=== PATIENT | male | born 1955 | race Caucasian/White ===

== ENCOUNTER 2017-01-16 18:50 | Emergency (ER) | payer MEDICARE ==
[2017-01-16] MEDS ORDERED: Hydromorphone 1 mg/ml Ampule IV ONE ×2 (19:45→22:05)
[2017-01-16] MEDS ORDERED: Sodium Chloride 0.9% 1000 ML 1,000 ML IV SCH (19:45)
[2017-01-16] MEDS ORDERED: Phenergan 25 MG INJ IV ONE (19:45)
[2017-01-16] MEDS ORDERED: ROCEPHIN 1 Gm-D5w 50 ml Bag** 1 G/50 ML IVPB IV STA (19:47)
--- NOTE | 2017-01-16 19:50 | ERPHSYRPT ---
- History of Present Illness Time Seen by Provider: 01/16/17 19:37 Source: patient, family (SISTER) Exam Limitations: no limitations Patient Subjective Stated Complaint: PT REPORTS PT HAS HAD LEFT SIDED BONE PAIN BEGINNING A FEW DAYS AGO-STATES PAIN ONLY GETS WORSE-PT HAS HX OF STROKE ET HAS DIFFICULTY SPEAKING- STATES THIS IS NOT WORSE Triage Nursing Assessment: PT PALE WARM ET [id number] TO ANSWER ONE WORD ANSWERS-RESP EASY ET NONLABORED-PUPILS RESPONSIVE Physician History: FOR THE PAST 3 DAYS PT HAS HAD LEFT SIDED FACIAL PAIN/HEADACHE AND DECREASED APPETITE; FOR THE PAST WEEK SHARP LEFT EARACHE; FOR THE PAST MONTH INCREASED URINARY FREQUENCY. PT HAD A CVA IN FEBRUARY 2013. PT DENIES CHEST PAIN, SHORTNESS OF AIR, ABDOMINAL PAIN. Allergies/Adverse Reactions: No Known Drug Allergies Allergy (Verified 01/16/17 19:08) Home Medications: Atorvastatin Calcium 20 mg PO DAILY 07/05/13 [History] Multivit-Min/FA/Lycopen/Lutein [Men 50 Plus Multivitamin Tab] 1 tab PO DAILY 05/15 [History] Aspirin [Aspirin EC] 81 mg PO .MONWEDFRI 05/31/16 [History] Metoprolol Tartrate 25 mg [Lopressor 25MG Tab] 25 mg PO DAILY 05/31/16 [ History] Rivaroxaban [Xarelto] 20 mg PO DAILY 05/31/16 [History] Hx Tetanus, Diphtheria Vaccination/Date Given: Yes Hx Influenza Vaccination/Date Given: No Hx Pneumococcal Vaccination/Date Given: No Immunizations Up to Date: Yes - Review of Systems Ears, Nose, & Throat: Ear Pain, Other (LEFT FACIAL PAIN) Respiratory: No Dyspnea Cardiac: No Chest Pain Abdominal/Gastrointestinal: Appetite Changes (DECREASED), No Abdominal Pain Genitourinary Symptoms: Frequency Neurological: Headache All Other Systems: Reviewed and Negative - Past Medical History Pertinent Past Medical History: Yes Neurological History: Stroke ENT History: No Pertinent History Cardiac History: Arrhythmia, High Cholesterol Respiratory History: No Pertinent History Endocrine Medical History: No Pertinent History Musculoskeletal History: Degenerative Disk Disease GI Medical History: GERD, Other History: No Pertinent History Psycho-Social History: Depression Male Reproductive Disorders: No Pertinent History Other Medical History: LONG HISTORY OF BACK PAIN AND MUSCLE SPASMS SPECIFICALLY IN LOWER BACK , hx bloody stools. pt came into ER for bloody stools and showed vtach on monitor per sister reportings. - Past Surgical History Past Surgical History: Yes Neuro Surgical History: No Pertinent History Cardiac: No Pertinent History Respiratory: No Pertinent History Gastrointestinal: Appendectomy Genitourinary: No Pertinent History Musculoskeletal: Orthopedic Surgery Male Surgical History: No Pertinent History Other Surgical History: 3 BACK SURGERIES - Social History Smoking Status: Current every day smoker How long have you smoked: YRS Exposure to second hand smoke: No Drug Use: none Patient Lives Alone: No Significant Family History: hypertension, stroke - Nursing Vital Signs Nursing Vital Signs: Initial Vital Signs Temperature 97.5 F 01/16/17 19:04 Pulse Rate 88 01/16/17 19:04 Respiratory Rate 20 01/16/17 19:04 Blood Pressure 117/75 01/16/17 19:04 O2 Sat by Pulse Oximetry 96 01/16/17 19:04 Pain Scale Pain Intensity 8 - Physical Exam General Appearance: alert Eye Exam: PERRL/EOMI Ears, Nose, Throat Exam: TMs normal, pharynx normal, dry mucous membranes Neck Exam: normal inspection Respiratory Exam: lungs clear Cardiovascular Exam: normal heart sounds Gastrointestinal/Abdomen Exam: soft, normal bowel sounds Back Exam: normal range of motion Extremity Exam: other (PARALYSIS OF RIGHT UPPER EXTREMITY; WEAKNESS OF RIGHT LOWER EXTREMITY.) Neurologic Exam: alert, cooperative Skin Exam: warm, dry SpO2 Interpretation: normal SpO2: 96 Oxygen Delivery: Room Air - Course Nursing assessment & vital signs reviewed: Yes - CT Exams Head CT Interpretation: Tele-radiologist Report (OLD LEFT MCA DISTRIBUTION INFARCT. NO ACUTE FINDINGS.) Maxillofacial Bones CT Interpretation: Tele-radiologist Report (MINIMAL SINUS DISEASE.) Ordered Tests: Active Orders 24 hr Category Date Time Status Clean Catch Urine Specimen STAT Care 01/16/17 19:45 Active IV Insertion STAT Care 01/16/17 19:45 Active FACIAL BONES WO CONTRAST [CT] Stat Exams 01/16/17 19:48 Taken HEAD WITHOUT CONTRAST [CT] Stat Exams 01/16/17 19:48 Taken AMYLASE Stat Lab 01/16/17 20:00 Completed CBC W DIFF Stat Lab 01/16/17 20:00 Completed CMP Stat Lab 01/16/17 20:00 Completed LIPASE Stat Lab 01/16/17 20:00 Completed MAG [MAGNESIUM] Stat Lab 01/16/17 20:00 Completed UA W/RFX UR CULTURE Stat Lab 01/16/17 20:40 Completed Medication Summary Generic Name Dose Route Start Last Admin Trade Name Paulie PRN Reason Stop Dose Admin Hydromorphone HCl 1 mg 01/16/17 22:05 Hydromorphone 1 Mg/Ml Ampule IV 01/16/17 22:06 STAT ONE Sodium Chloride 1,000 mls @ 335 mls/hr 01/16/17 19:45 01/16/17 20:30 Sodium Chloride 0.9% 1000 Ml IV 02/15/17 19:44 335 mls/hr .Q3H TONY Administration Discontinued Medications Generic Name Dose Route Start Last Admin Trade Name Paulie PRN Reason Stop Dose Admin Hydromorphone HCl 1 mg 01/16/17 19:45 01/16/17 20:29 Hydromorphone 1 Mg/Ml Ampule IV 01/16/17 19:46 1 mg STAT ONE Administration Hydromorphone HCl Confirm 01/16/17 20:11 Hydromorphone 1 Mg/Ml Ampule Administered 01/16/17 20:12 Dose 1 mg .ROUTE .STK-MED ONE Ceftriaxone Sodium/Dextrose 1 g in 50 mls @ 100 mls/hr 01/16/17 19:47 20:30 Rocephin 1 Gm-D5w 50 Ml Bag IV 01/16/17 20:16 100 mls/hr STAT STA Administration Ceftriaxone Sodium/Dextrose Confirm 01/16/17 20:11 Rocephin 1 Gm-D5w 50 Ml Bag Administered 01/16/17 20:12 Dose 1 g in 50 mls @ ud IV .STK-MED ONE Promethazine HCl 12.5 mg 01/16/17 19:45 01/16/17 20:30 Phenergan 25 Mg Inj IV 01/16/17 19:46 12.5 mg STAT ONE Administration Promethazine HCl Confirm 01/16/17 20:11 Phenergan 25 Mg Inj Administered 01/16/17 20:12 Dose 25 mg .ROUTE .STK-MED ONE Lab/Rad Data: Laboratory Result Diagrams 01/16/17 20:00 01/16/17 20:00 Laboratory Results 01/16/17 01/16/17 01/16/17 Range/Units 20:40 20:00 20:00 WBC (4.0-10.5) K/mm3 RBC (4.1-5.6) M/mm3 Hgb (12.5-18.0) gm/dl Hct (42-50) % MCV (78-100) fl MCH (26-32) pg MCHC (32-36) g/dl RDW (11.5-14.0) % Plt Count (150-450) K/mm3 MPV (6-9.5) fl Gran % (36.0-66.0) % Lymphocytes % (24.0-44.0) % Monocytes % (0.0-12.0) % Eosinophils % (0.00-5.0) % Basophils % (0.0-0.4) % Basophils # (0-0.4) Sodium 142 (136-145) mEq/L Potassium 4.0 (3.5-5.1) mEq/L Chloride 106 (98-107) mEq/L Carbon Dioxide 27.7 (21-32) mEq/L Anion Gap 12.7 (5-15) MEQ/L BUN 6 L (9-20) mg/dL Creatinine 1.31 H (0.55-1.30) mg/dl Estimated GFR 60 ML/MIN Glucose 109 (70-110) MG/DL Calcium 9.3 (8.5-10.1) mg/dL Magnesium 2.2 (1.8-2.4) mg/dL Total Bilirubin 0.40 (0.2-1.0) mg/dL AST 16 (15-37) U/L ALT 21 (12-78) U/L Alkaline Phosphatase 115 (46-116) U/L Serum Total Protein 7.5 (6.4-8.2) gm/dL Albumin 3.4 (3.4-5.0) g/dL Amylase 64 (25-115) U/L Lipase 117 (73-393) U/L Ur Collection Type CLEAN CATCH Urine Color YELLOW (YELLOW) Urine Appearance CLEAR (CLEAR) Urine pH 8.0 (5-6) Ur Specific Hudson 1.005 (1.005-1.025) Urine Protein NEGATIVE (Negative) Urine Ketones NEGATIVE (NEGATIVE) Urine Blood NEGATIVE (0-5) Festus/ul Urine Nitrite NEGATIVE (NEGATIVE) Urine Bilirubin NEGATIVE (NEGATIVE) Urine Urobilinogen NORMAL (0-1) mg/dL Ur Leukocyte Esterase NEGATIVE (NEGATIVE) Urine Glucose NEGATIVE (NEGATIVE) mg/dL Specimen Received 01/16/17:203901/16/17 Range/Units 20:00 WBC 8.9 (4.0-10.5) K/mm3 RBC 4.54 (4.1-5.6) M/mm3 Hgb 14.9 (12.5-18.0) gm/dl Hct 44.7 (42-50) % MCV 98.5 (78-100) fl MCH 32.8 H (26-32) pg MCHC 33.3 (32-36) g/dl RDW 13.5 (11.5-14.0) % Plt Count 289 (150-450) K/mm3 MPV 9.6 H (6-9.5) fl Gran % 50.7 (36.0-66.0) % Lymphocytes % 39.9 (24.0-44.0) % Monocytes % 7.2 (0.0-12.0) % Eosinophils % 1.8 (0.00-5.0) % Basophils % 0.4 (0.0-0.4) % Basophils # 0.04 (0-0.4) Sodium (136-145) mEq/L Potassium (3.5-5.1) mEq/L Chloride (98-107) mEq/L Carbon Dioxide (21-32) mEq/L Anion Gap (5-15) MEQ/L BUN (9-20) mg/dL Creatinine (0.55-1.30) mg/dl Estimated GFR ML/MIN Glucose (70-110) MG/DL Calcium (8.5-10.1) mg/dL Magnesium (1.8-2.4) mg/dL Total Bilirubin (0.2-1.0) mg/dL AST (15-37) U/L ALT (12-78) U/L Alkaline Phosphatase (46-116) U/L Serum Total Protein (6.4-8.2) gm/dL Albumin (3.4-5.0) g/dL Amylase (25-115) U/L Lipase (73-393) U/L Ur Collection Type Urine Color (YELLOW) Urine Appearance (CLEAR) Urine pH (5-6) Ur Specific Hudson (1.005-1.025) Urine Protein (Negative) Urine Ketones (NEGATIVE) Urine Blood (0-5) Festus/ul Urine Nitrite (NEGATIVE) Urine Bilirubin (NEGATIVE) Urine Urobilinogen (0-1) mg/dL Ur Leukocyte Esterase (NEGATIVE) Urine Glucose (NEGATIVE) mg/dL Specimen Received - Departure Time of Disposition: 22:10 Departure Disposition: Home Clinical Impression: SINUSITIS, HEADACHE, LEFT FACIAL PAIN, HX CVA Condition: Stable Critical Care Time: No Referrals: ADALBERTO MIMS [Primary Care Provider] - Instructions: Headache, Sinusitis Additional Instructions: FOLLOW UP WITH PRIVATE DOCTOR TOMORROW. Prescriptions: Hydrocodone Bit/Acetaminophen [[place]wood 7.5-325 Tablet] 1 each PO Q4H PRN PRN #14 tablet PRN Reason: Pain Azithromycin 250 mg [Zithromax 250 MG TABLET] 250 mg PO ZPACK #6 tablet
[2017-01-16] MEDS ORDERED: Hydromorphone 1 mg/ml Ampule ONE ×2 (20:11→22:06)
[2017-01-16] MEDS ORDERED: ROCEPHIN 1 Gm-D5w 50 ml Bag** 1 G/50 ML IVPB IV ONE (20:11)
[2017-01-16] MEDS ORDERED: Phenergan 25 MG INJ ONE (20:11)
[2017-01-16] MEDS ORDERED: Sodium Chloride 0.9% 1000 ML 1,000 ML ONE (20:11)
[2017-01-16 20:14] LABS: BASOPHIL % 0.4 % (0.0-0.4); Eosinophil % 1.8 % (0.00-5.0); Granulocytes % 50.7 % (36.0-66.0); Lymphocytes % 39.9 % (24.0-44.0); Mean Cell Volume 98.5 fl (78-100); Mean Corpuscular Hemoglobin 32.8 pg (26-32); Mean Platelet Volume 9.6 fl (6-9.5); Monocytes % 7.2 % (0.0-12.0); Platelet Count 289 K/mm3 (150-450); Red Blood Count 4.54 M/mm3 (4.1-5.6); Red Cell Distribution Width 13.5 % (11.5-14.0); White Blood Count 8.9 K/mm3 (4.0-10.5)
[2017-01-16 20:35] LABS: ALBUMIN 3.4 g/dL (3.4-5.0); ANION GAP 12.7 MEQ/L (5-15); BILIRUBIN,TOTAL 0.4 mg/dL (0.2-1.0); Carbon Dioxide 27.7 mEq/L (21-32); Total Protein 7.5 gm/dL (6.4-8.2)
[2017-01-16 20:46] LABS: ADD URINE CULTURE? NO (NO); Bilirubin NEGATIVE (NEGATIVE); Blood NEGATIVE Ery/ul (0-5); COMPLETE URINE MICROSCOPIC? NO; Collection Type CLEAN CATCH; Glucose NEGATIVE (NEGATIVE); Leukocyte Esterase NEGATIVE (NEGATIVE)
[2017-01-16 22:05] VITALS: BP 124/86; PULSE 72
[2017-01-16 22:10] VITALS: O2SAT 96
--- NOTE | 2017-01-17 08:42 | XRAY ---
Indication: Left facial pain. Multiple contiguous axial images obtained through the head without contrast. Comparison: March 21, 2013. New finding for old left MCA infarct. No acute intracranial hemorrhage, hydrocephalus, or mass effect. Fourth ventricle is midline. Bony calvarium intact. Visualized paranasal sinuses and mastoid air cells are clear. Impression: Old left MCA infarct. No acute intracranial abnormalities. Comment: Preliminary interpretation was made by [facility]. No discrepancy. CTDI 68.15
--- NOTE | 2017-01-17 08:44 | XRAY ---
Indication: Left facial pain. Multiple contiguous axial images obtained through the facial bones. Sagittal and coronal reformatted images obtained. Comparison: None. Patient is edentulous. No acute fracture, suspicious bony lesions, or radiopaque foreign body. Orbits including roof, cruz, and floors intact. Minimal nasoseptal deviation to the right. Minimal mucosal thickening of the both ethmoid, left frontal, and floor of the right maxillary sinuses. Remaining paranasal sinuses clear. Visualized noncontrasted soft tissues unremarkable. CT head reported separately. Impression: Minimal paranasal sinus disease. Remaining CT facial bones negative. Comment: Preliminary interpretation was made by [facility]. No discrepancy. CTDI 59.47
== END 2017-01-16 22:29 | disposition home or self-care (01) ==
LOC: ED 18:50
DX: J32.9 Chronic sinusitis, unspecified (principal); R51 Headache; Z86.73 Personal history of transient ischemic attack (TIA), and cerebral infarction without residual deficits
CPT/HCPCS: 36000; 36415; 70450; 70486; 80053; 81002; 82150; 83690; 83735; 85025; 96360; 96361; 96374; 96375; 96376; 99284; J0696; J1170; J2550

== ENCOUNTER 2020-08-18 09:57 | Day surgery (SDC) | payer MEDICARE ==
[2020-08-18] MEDS ORDERED: BUPIVACAINE 0.5% VIAL IJ ONE (09:58)
[2020-08-18] MEDS ORDERED: Depo-Medrol 40 MG/ML IM ONE (09:58)
[2020-08-18] MEDS ORDERED: DIPRIVAN 200 MG/20 ML IV ONE (11:05)
--- NOTE | 2020-08-18 11:59 | XRAY ---
13 seconds fluoroscopy time in surgery for intra-articular injection of the left shoulder.
--- NOTE | 2020-08-18 12:05 | XRAY ---
Indication: Right shoulder injection. Intraoperative fluoroscopy provided for 8 seconds. Single digital spot images submitted for interpretation demonstrates needle tip projecting over the right glenohumeral joint superiorly. Small amount of contrast injected for needle tip placement. Correlate with intraoperative findings/report.
--- NOTE | 2020-08-18 12:09 | XRAY ---
Indication: Left shoulder injection. Intraoperative fluoroscopy provided for 13 seconds. Single digital spot image submitted for interpretation demonstrates needle tip projecting over the left glenohumeral joint superiorly. Small amount of contrast injected for needle tip placement. Correlate with intraoperative findings/report.
--- NOTE | 2020-08-18 12:37 | XRAY ---
8 seconds fluoroscopy time in surgery for intra-articular injection of the right shoulder.
[2020-08-18] MEDS ORDERED: Lactated Ringers 1,000 ML IV ONE (16:31)
== END 2020-08-18 11:40 | disposition home or self-care (01) ==
LOC: SDC-PAIN 09:57
PROVIDERS: ATTEND Psychiatry & Neurology Pain Medicine
DX: M19.012 Primary osteoarthritis, left shoulder (principal); M19.011 Primary osteoarthritis, right shoulder; G62.9 Polyneuropathy, unspecified; Z86.73 Personal history of transient ischemic attack (TIA), and cerebral infarction without residual deficits; I48.91 Unspecified atrial fibrillation; F41.8 Other specified anxiety disorders; Z79.01 Long term (current) use of anticoagulants; Z79.899 Other long term (current) drug therapy
CPT/HCPCS: 20610; 73030; 77002; J1030; J2704; Q9966

== ENCOUNTER 2021-04-14 11:17 | Emergency (ER) | payer MEDICARE ==
--- NOTE | 2021-04-14 11:23 | ERPHSYRPT ---
- History of Present Illness Time Seen by Provider: 04/14/21 11:22 Source: patient Exam Limitations: no limitations, clinical condition Physician History: This is a 65-year-old white male who uses a wheelchair to move around after a CVA several years ago. He is a patient of Dr. Renner. He is on Xarelto he has a history of hypertension and elevated cholesterol. He has chronic right-sided residual weakness. Patient states that he has significant right shoulder and upper arm pain since yesterday. He did not fall or suffer any trauma to the area. He has never had anything like this in the past. He denies overexertion. Patient is not interested in an x-ray at this time. He has no anterior chest pain. He does see Dr. Carrero, his pain specialist. Occurred: yesterday Quality: constant, aching Severity of Pain-Max: moderate Severity of Pain-Current: moderate Extremities Pain Location: shoulder: right, arm: right (Upper portion) Modifying Factors: Improves With: immobilization (Improved) Associated Symptoms: none Allergies/Adverse Reactions: No Known Drug Allergies Allergy (Verified 04/14/21 11:44) Home Medications: Atorvastatin Calcium 20 mg PO DAILY 07/05/13 [History] Multivit-Min/FA/Lycopen/Lutein [Men 50 Plus Multivitamin Tab] 1 tab PO DAILY 03/30/16 [History] Aspirin [Aspirin EC] 81 mg PO .MONWEDFRI 05/31/16 [History] Metoprolol Tartrate 25 mg [Lopressor 25MG Tab] 25 mg PO DAILY 05/31/16 [History] Rivaroxaban [Xarelto] 20 mg PO DAILY 05/31/16 [History] Hx Tetanus, Diphtheria Vaccination/Date Given: Yes Hx Influenza Vaccination/Date Given: No Hx Pneumococcal Vaccination/Date Given: No Travel Risk - International Travel Have you traveled outside of the country in past 3 weeks: No - Coronavirus Screening Are you exhibiting any of the following symptoms?: No Close contact with a COVID-19 positive Pt in past 14-21 Days: No - Review of Systems Constitutional: No Symptoms Eyes: No Symptoms Ears, Nose, & Throat: No Symptoms Respiratory: No Symptoms Cardiac: No Symptoms Abdominal/Gastrointestinal: No Symptoms Genitourinary Symptoms: No Symptoms Musculoskeletal: Joint Pain (Right shoulder) Skin: No Symptoms Neurological: No Symptoms Psychological: No Symptoms Endocrine: No Symptoms Hematologic/Lymphatic: No Symptoms Immunological/Allergic: No Symptoms All Other Systems: Reviewed and Negative - Past Medical History Pertinent Past Medical History: Yes Neurological History: Stroke ENT History: No Pertinent History Cardiac History: Arrhythmia, High Cholesterol Respiratory History: No Pertinent History Endocrine Medical History: No Pertinent History Musculoskeletal History: Degenerative Disk Disease GI Medical History: GERD, Other History: No Pertinent History Psycho-Social History: Depression Male Reproductive Disorders: No Pertinent History Other Medical History: LONG HISTORY OF BACK PAIN AND MUSCLE SPASMS SPECIFICALLY IN LOWER BACK , hx bloody stools. pt came into ER for bloody stools and showed vtach on monitor per sister reportings. - Past Surgical History Past Surgical History: Yes Neuro Surgical History: No Pertinent History Cardiac: No Pertinent History Respiratory: No Pertinent History Gastrointestinal: Appendectomy Genitourinary: No Pertinent History Musculoskeletal: Orthopedic Surgery Male Surgical History: No Pertinent History Other Surgical History: 3 BACK SURGERIES - Social History Smoking Status: Current every day smoker How long have you smoked: YRS Exposure to second hand smoke: No Drug Use: none Patient Lives Alone: No Significant Family History: hypertension, stroke - Nursing Vital Signs Nursing Vital Signs: Initial Vital Signs Temperature 97.6 F 04/14/21 11:38 Pulse Rate 77 04/14/21 11:38 Blood Pressure 125/76 04/14/21 11:38 O2 Sat by Pulse Oximetry 96 04/14/21 11:38 Pain Scale Pain Intensity 10 - Physical Exam General Appearance: no apparent distress, alert, anxiety Eyes, Ears, Nose, Throat Exam: normal ENT inspection, moist mucous membranes Neck Exam: normal inspection, non-tender, supple, full range of motion Cardiovascular/Respiratory Exam: chest non-tender, no respiratory distress Abdominal Exam: non-tender Back Exam: normal inspection, normal range of motion, No CVA tenderness, No vertebral tenderness Shoulder Exam: normal inspection, no evidence of injury, limited ROM (Chronically secondary to weakness post CVA several years ago) Elbow/Forearm Exam: normal inspection, non-tender, no evidence of injury Wrist Exam: normal inspection, non-tender, no evidence of injury Hand Exam: normal inspection, non-tender, no evidence of injury Neuro/Tendon Exam: normal sensation, normal motor functions, normal tendon functions Mental Status Exam: alert, oriented x 3, cooperative Skin Exam: normal color, warm, dry SpO2 Interpretation: normal O2 Delivery: Room Air Ordered Tests: Medication Summary Discontinued Medications Generic Name Dose Route Start Last Admin Trade Name Paulie PRN Reason Stop Dose Admin Methylprednisolone Sodium 0 mg 04/14/21 12:33 Succinate 125 mg/ Sterile IM 04/14/21 12:34 Water 2 ml STAT ONE Hydromorphone HCl 1 mg 04/14/21 12:31 Hydromorphone 1 Mg/1ml Inj 1 Mg/Ml Syringe IM 04/14/21 12:32 STAT ONE Ondansetron HCl 4 mg 04/14/21 12:33 Zofran 4 Mg/Udtablet Orally Disintegrating PO 04/14/21 12:34 STAT ONE Orphenadrine Citrate 60 mg 04/14/21 12:32 Orphenadrine Citrate 60 Mg/2 Ml Amp IM 04/14/21 12:33 STAT ONE - Progress Progress: improved, pain not gone completely Progress Note: 04/14/21 13:14 Medical decision making: This patient has right shoulder pain that began yesterday. He denies any trauma and does not want a x-ray of this shoulder at this time. He wants some pain relief. Patient is chronically on hydrocodone medication. We will add to his regimen and a muscle relaxant. We will also have him follow-up in the [facility] orthopedic clinic tomorrow 04/15/2021 in the morning. 04/14/21 13:15 Counseled pt/family regarding: diagnosis, need for follow-up - Departure Departure Disposition: Home Clinical Impression: Pain in right shoulder Condition: Stable Critical Care Time: No Referrals: ADALBERTO RENNER [Primary Care Provider] - [facility]-Ortho M-F [id number] Additional Instructions: Follow-up tomorrow in the [facility] orthopedic clinic for further management evaluation of your right shoulder pain. It is a walk-in clinic and you should arrive between 8 and 9 in the morning. Prescriptions: Cyclobenzaprine HCl 10 mg [Cyclobenzaprine 10 MG] 10 mg PO TID #10 tablet
[2021-04-14 11:44] VITALS: BP 125/76; PULSE 77; O2SAT 96
[2021-04-14] MEDS ORDERED: Hydromorphone 1 mg/ml Injection IM ONE (12:31)
[2021-04-14] MEDS ORDERED: Norflex 60 MG/2 ML IM ONE (12:32)
[2021-04-14] MEDS ORDERED: ZOFRAN ODT 4 MG PO ONE (12:33)
[2021-04-14] MEDS ORDERED: solu-MEDROL 125 MG, Sterile H2O 10 ml 2 ML IM ONE ×2 (12:33)
[2021-04-14] MEDS ORDERED: ZOFRAN ODT 4 MG ONE (13:08)
[2021-04-14] MEDS ORDERED: Norflex 60 MG/2 ML ONE (13:08)
[2021-04-14] MEDS ORDERED: Hydromorphone 1 mg/ml Injection ONE (13:08)
[2021-04-14] MEDS ORDERED: solu-MEDROL ONE (13:08)
== END 2021-04-14 13:34 | disposition home or self-care (01) ==
LOC: ED 11:17
DX: M25.511 Pain in right shoulder (principal); M79.621 Pain in right upper arm; I63.9 Cerebral infarction, unspecified; R53.1 Weakness; I10 Essential (primary) hypertension; Z99.3 Dependence on wheelchair; Z72.0 Tobacco use; E78.5 Hyperlipidemia, unspecified; Z79.01 Long term (current) use of anticoagulants; Z79.891 Long term (current) use of opiate analgesic
CPT/HCPCS: 96372; 99284; J1170; J2360; J2930; Q0162

== ENCOUNTER 2021-04-16 13:19 | Emergency (ER) | payer MEDICARE ==
[2021-04-16 13:48] VITALS: PULSE 72; O2SAT 96
--- NOTE | 2021-04-16 14:17 | ERPHSYRPT ---
- History of Present Illness Time Seen by Provider: 04/16/21 13:22 Source: patient Exam Limitations: no limitations Patient Subjective Stated Complaint: Sister of patient states that she brought patient into ED on for the same right shoulder pain. She took him to the ortho clinic here at the hospital but stated the ortho clinic couldn't see him until they verified with Dr. Carrero that this was okay. Sister states the pain in his right shoulder isn't any better so she brought him back to the ED. Patient c/o right shoulder pain and denies any fall or injury to area. Triage Nursing Assessment: Patient wheeled back to ED in W/C. Patient brought to ED by his sister. He is answering questions appropriately most of the time but does get confused at times. RUE flaccid and slightly swollen; patient indicates this is normal for him. Physician History: 65 years old male with history of right-sided CVA with weakness presented in the ER with chief complaint of worsening right shoulder/arm pain for the last few days. Patient was evaluated 2 days ago, was given Solu-Medrol/Dilaudid/Norflex, was offered imaging which she refused and patient was supposed to follow-up with Ortho clinic. Patient does see pain management and Ortho clinic wants to make sure patient is okay to be seen there. Patient reported to the ER today with same pain getting worse. Patient states he needs three shots which she got last time and wants to go as those chart did help for couple of days. Denies any fall or trauma. Denies any swelling in the right upper extremity. No fever or chills reported. Denies any chest pain palpitations or new shortness of breath but has chronic shortness of breath from COPD's. Patient is very adamant that he needs shots and does not even want to be examined. Timing/Duration: day(s), constant, worse Severity: severe Modifying Factors: Improves With: nothing Associated Symptoms: weakness Allergies/Adverse Reactions: No Known Drug Allergies Allergy (Verified 04/16/21 13:36) Home Medications: Atorvastatin Calcium 20 mg PO DAILY 07/05/13 [History] Multivit-Min/FA/Lycopen/Lutein [Men 50 Plus Multivitamin Tab] 1 tab PO DAILY 03/30/16 [History] Aspirin [Aspirin EC] 81 mg PO .MONWEDFRI 05/31/16 [History] Metoprolol Tartrate 25 mg [Lopressor 25MG Tab] 25 mg PO DAILY 05/31/16 [History] Rivaroxaban [Xarelto] 20 mg PO DAILY 05/31/16 [History] Hx Tetanus, Diphtheria Vaccination/Date Given: Yes Hx Influenza Vaccination/Date Given: No Hx Pneumococcal Vaccination/Date Given: No Immunizations Up to Date: Yes Travel Risk - International Travel Have you traveled outside of the country in past 3 weeks: No - Coronavirus Screening Are you exhibiting any of the following symptoms?: No Close contact with a COVID-19 positive Pt in past 14-21 Days: No - Vaccine Status Have you recieved a Covid-19 vaccination: Yes 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 - Vaccination Dates Dates if Unknown: unknown - Review of Systems Constitutional: No Symptoms Eyes: No Symptoms Respiratory: Cough, Dyspnea Cardiac: No Symptoms Abdominal/Gastrointestinal: No Symptoms Musculoskeletal: Arthralgias, Deformity Skin: No Symptoms Neurological: Paralysis, Sensory Changes Psychological: Anxiety Hematologic/Lymphatic: No Symptoms - Past Medical History Pertinent Past Medical History: Yes Neurological History: Stroke ENT History: No Pertinent History Cardiac History: Arrhythmia, High Cholesterol Respiratory History: No Pertinent History Endocrine Medical History: No Pertinent History Musculoskeletal History: Degenerative Disk Disease GI Medical History: GERD, Other History: No Pertinent History Psycho-Social History: Depression Male Reproductive Disorders: No Pertinent History Other Medical History: LONG HISTORY OF BACK PAIN AND MUSCLE SPASMS SPECIFICALLY IN LOWER BACK - Past Surgical History Past Surgical History: Yes Neuro Surgical History: No Pertinent History Cardiac: No Pertinent History Respiratory: No Pertinent History Gastrointestinal: Appendectomy Genitourinary: No Pertinent History Musculoskeletal: Orthopedic Surgery Male Surgical History: No Pertinent History Other Surgical History: 3 BACK SURGERIES - Social History Smoking Status: Current every day smoker How long have you smoked: YRS Exposure to second hand smoke: No Drug Use: none Patient Lives Alone: No Significant Family History: hypertension, stroke - Nursing Vital Signs Nursing Vital Signs: Initial Vital Signs Temperature 98.2 F 04/16/21 13:36 Pulse Rate 72 04/16/21 13:36 Respiratory Rate 18 04/16/21 13:36 O2 Sat by Pulse Oximetry 96 04/16/21 13:36 Pain Scale Pain Intensity 9 - Physical Exam General Appearance: no apparent distress, alert, anxiety Eye Exam: eyes nml inspection Ears, Nose, Throat Exam: pharyngeal erythema Neck Exam: normal inspection, full range of motion Respiratory Exam: rhonchi, wheezing Cardiovascular Exam: regular rate/rhythm, normal heart sounds Back Exam: normal inspection Extremity Exam: other (Nontender right upper extremity. Contracture in the hand. 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 I have counseled him that we can treat pain symptomatically but needs to be evaluated the reason as this pain could be cardiac, musculoskeletal, DVT but he does not want any thing to be done. He wants to leave, discussed with patient about seriousness of condition which could be underlying cause of it and delaying the diagnosis good further enhanced disability/morbidity but he does not want to have anything done. He is specifically asking for Dilaudid. He is on pain medications at home. He is not confused or altered at all. He left the ER on his wheelchair which she normally used for moving around. No respiratory distress. Counseled pt/family regarding: diagnosis, need for follow-up, smoking cessation - Departure Departure Disposition: AMA Clinical Impression: Pain in right shoulder Qualifiers: Chronicity: unspecified Qualified Code(s): M25.511 - Pain in right shoulder Condition: Stable Critical Care Time: No Referrals: ADALBERTO MIMS [Primary Care Provider] - Follow up/PCP as directed
== END 2021-04-16 14:12 | disposition left against medical advice (07) ==
LOC: ED 13:19
DX: M25.511 Pain in right shoulder (principal); I63.9 Cerebral infarction, unspecified; G81.91 Hemiplegia, unspecified affecting right dominant side; Z79.01 Long term (current) use of anticoagulants; E78.5 Hyperlipidemia, unspecified; Z72.0 Tobacco use
CPT/HCPCS: 99283

== ENCOUNTER 2021-04-21 10:13 | Emergency (ER) | payer MEDICARE ==
--- NOTE | 2021-04-21 11:22 | XRAY ---
Indication: Pain and weakness. Comparison: July 22, 2020. 3 view right shoulder obtained in wheelchair grossly unchanged again demonstrating osteopenia and mild glenohumeral/acromioclavicular degenerative arthropathy. No new/acute abnormalities.
[2021-04-21] MEDS ORDERED: Hydromorphone 1 mg/ml Injection IM ONE (11:32)
[2021-04-21] MEDS ORDERED: solu-MEDROL 125 MG, Sterile H2O 10 ml 2 ML IM ONE ×2 (11:32)
[2021-04-21] MEDS ORDERED: Zofran 4 MG/2 ML VIAL IV ONE (11:33)
[2021-04-21] MEDS ORDERED: Norflex 60 MG/2 ML IM ONE (11:33)
--- NOTE | 2021-04-21 11:40 | ERPHSYRPT ---
- History of Present Illness Time Seen by Provider: 04/21/21 10:15 Source: patient, family Exam Limitations: clinical condition (Post CVA with residual speech impediment) Patient Subjective Stated Complaint: Patient c/o chronic right arm/shoulder pain. Indicates pain is increasing. Right side is flaccid due to history of CVA which is normal for this patient. Triage Nursing Assessment: Patient wheeled back to ED. His sister is present with him. He is not a great historian but the sister is able to provide an accurate history without difficulties. Patient has to hold his RUE across his stomach using his left hand to keep it in a position of more comfort. RUE is swollen. Patient refusing to get out of W/C and into bed for exam. Physician History: This is a 65-year-old white male patient of Dr. 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 He also sees pain specialist Dr. Carrero. Patient has had chronic but worsening right shoulder pain without trauma. On 04/14/2021 patient was seen by me in the emergency department and the patient declined x-ray at that time. He was given injections of intramuscular medication to help relieve his pain and was referred to orthopedic clinic here at [facility]. He was to have an evaluation by them on 04/15/2021. However there was some type of issue halting that process because the patient sees a pain specialist. That has still not resolved. On 04/16/2021 patient was again seen in this emergency department and left AMA when he declined x-ray again and declined work-up. He returns today with no chest pain but worsening left shoulder pain. He has an appointment to see Dr. Carrero on 04/27/2021, his pain specialist. He does agree to an x-ray of his right shoulder today Occurred: other (Chronic) Method of Injury: unknown Quality: constant, aching, throbbing Severity of Pain-Max: moderate Severity of Pain-Current: moderate Extremities Pain Location: shoulder: right Modifying Factors: Improves With: movement (Worsens), other (Patient tries to use his sling but it hurts other areas on his body when he wears it. Therefore, he does not wear his sling) Associated Symptoms: none, No chest discomfort, No chest pain, No dyspnea, No short of breath Allergies/Adverse Reactions: No Known Drug Allergies Allergy (Verified 04/21/21 11:13) Home Medications: Atorvastatin Calcium 20 mg PO DAILY 07/05/13 [History] Multivit-Min/FA/Lycopen/Lutein [Men 50 Plus Multivitamin Tab] 1 tab PO DAILY 03/30/16 [History] Aspirin [Aspirin EC] 81 mg PO .MONWEDFRI 05/31/16 [History] Metoprolol Tartrate 25 mg [Lopressor 25MG Tab] 25 mg PO DAILY 05/31/16 [History] Rivaroxaban [Xarelto] 20 mg PO DAILY 05/31/16 [History] Duloxetine HCl 30 mg [Cymbalta 30 MG Capsule] 1 cap PO DAILY 04/21/21 [History] Hydrocodone/Acetaminophen [Hydrocodone-Acetamin 10-325 mg] 1 tab PO QID PRN 04/21/21 [History] Hx Tetanus, Diphtheria Vaccination/Date Given: Yes Hx Influenza Vaccination/Date Given: No Hx Pneumococcal Vaccination/Date Given: No Immunizations Up to Date: Yes Travel Risk - International Travel Have you traveled outside of the country in past 3 weeks: No - Coronavirus Screening Are you exhibiting any of the following symptoms?: No Close contact with a COVID-19 positive Pt in past 14-21 Days: No - Vaccine Status Have you recieved a Covid-19 vaccination: 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: [employer] - Vaccination Dates Date of 2cond Vaccination (if applicable): January 2021 - Review of Systems Constitutional: No Symptoms Eyes: No Symptoms Ears, Nose, & Throat: No Symptoms Respiratory: No Symptoms Cardiac: No Symptoms, No Chest Pain Abdominal/Gastrointestinal: No Symptoms Genitourinary Symptoms: No Symptoms Musculoskeletal: Joint Pain (Right shoulder), No Fall, No Injury Skin: No Symptoms Neurological: No Symptoms Psychological: No Symptoms Endocrine: No Symptoms Hematologic/Lymphatic: No Symptoms Immunological/Allergic: No Symptoms All Other Systems: Reviewed and Negative - Past Medical History Pertinent Past Medical History: Yes Neurological History: Stroke ENT History: No Pertinent History Cardiac History: Arrhythmia, High Cholesterol Respiratory History: COPD Endocrine Medical History: No Pertinent History Musculoskeletal History: Degenerative Disk Disease GI Medical History: GERD, Other History: No Pertinent History Psycho-Social History: Depression Male Reproductive Disorders: No Pertinent History Other Medical History: LONG HISTORY OF BACK PAIN AND MUSCLE SPASMS SPECIFICALLY IN LOWER BACK - Past Surgical History Past Surgical History: Yes Neuro Surgical History: No Pertinent History Cardiac: No Pertinent History Respiratory: No Pertinent History Gastrointestinal: Appendectomy Genitourinary: No Pertinent History Musculoskeletal: Orthopedic Surgery Male Surgical History: No Pertinent History Other Surgical History: 4 BACK SURGERIES - Social History Smoking Status: Current every day smoker How long have you smoked: 45 years Exposure to second hand smoke: No Drug Use: none Patient Lives Alone: No Significant Family History: hypertension, stroke - Nursing Vital Signs Nursing Vital Signs: Initial Vital Signs Temperature 98 F 04/21/21 10:13 Pulse Rate 84 04/21/21 10:13 Respiratory Rate 17 04/21/21 10:13 Blood Pressure 141/80 04/21/21 10:13 O2 Sat by Pulse Oximetry 98 04/21/21 10:13 Pain Scale Pain Intensity 8 - Physical Exam General Appearance: no apparent distress, alert, anxiety Eyes, Ears, Nose, Throat Exam: normal ENT inspection, moist mucous membranes Neck Exam: normal inspection, non-tender, supple, full range of motion Cardiovascular/Respiratory Exam: chest non-tender, normal breath sounds, regular rate/rhythm, heart sounds normal, no respiratory distress Abdominal Exam: non-tender Back Exam: normal inspection, normal range of motion, No CVA tenderness, No vertebral tenderness Shoulder Exam: normal inspection, no evidence of injury, limited ROM, No deformity Elbow/Forearm Exam: normal inspection, non-tender, no evidence of injury, normal ROM Wrist Exam: normal inspection, non-tender, no evidence of injury Hand Exam: normal inspection, non-tender, no evidence of injury Neuro/Tendon Exam: normal sensation, normal motor functions, normal tendon functions, motor deficit (Secondary to stroke in the past) Mental Status Exam: alert, oriented x 3, cooperative Skin Exam: normal color, warm, dry SpO2 Interpretation: normal SpO2: 98 O2 Delivery: Room Air - Course Nursing assessment & vital signs reviewed: Yes Ordered Tests: Active Orders 24 hr Category Date Time Status SHOULDER Stat Exams 04/21/21 10:36 Completed - Progress Progress: improved, pain not gone completely, re-examined Progress Note: 04/21/21 11:40 Patient has narcotic pain medication at home. He sees his pain specialist on 04/27/2021. We will attempt to arrange his orthopedic appointment as an outpatient. 04/21/21 11:41 X-ray of the right shoulder shows degenerative changes. There are no/acute abnormalities. - Departure Departure Disposition: Home Clinical Impression: Chronic right shoulder pain Condition: Stable Critical Care Time: No Referrals: ADALBERTO RENNER [Primary Care Provider] - Follow up/PCP as directed Additional Instructions: Continue your outpatient pain medication as prescribed. Keep your appointment with your pain specialist. Follow-up with orthopedic services as discussed and arranged for you.
[2021-04-21] MEDS ORDERED: Hydromorphone 1 mg/ml Injection ONE (11:44)
[2021-04-21] MEDS ORDERED: Zofran 4 MG/2 ML VIAL ONE (11:44)
[2021-04-21] MEDS ORDERED: solu-MEDROL ONE (11:44)
[2021-04-21] MEDS ORDERED: Norflex 60 MG/2 ML ONE (11:44)
[2021-04-21 12:04] VITALS: BP 141/78; PULSE 81; O2SAT 97
== END 2021-04-21 12:11 | disposition home or self-care (01) ==
LOC: ED 10:13
DX: M25.511 Pain in right shoulder (principal); G89.29 Other chronic pain; I10 Essential (primary) hypertension; E78.5 Hyperlipidemia, unspecified; Z79.01 Long term (current) use of anticoagulants; Z79.891 Long term (current) use of opiate analgesic; Z72.0 Tobacco use; I63.9 Cerebral infarction, unspecified; R47.9 Unspecified speech disturbances; G81.01 Flaccid hemiplegia affecting right dominant side
CPT/HCPCS: 73030; 96372; 96374; 96375; 99284; J1170; J2360; J2405; J2930

== ENCOUNTER 2021-04-23 13:09 | Emergency (ER) | payer MEDICARE ==
[2021-04-23] MEDS ORDERED: Hydromorphone 1 mg/ml Injection IM ONE (14:36)
[2021-04-23] MEDS ORDERED: Hydromorphone 1 mg/ml Injection ONE (14:41)
--- NOTE | 2021-04-23 14:56 | ERPHSYRPT ---
- History of Present Illness Time Seen by Provider: 04/23/21 13:20 Source: patient, family Exam Limitations: no limitations Patient Subjective Stated Complaint: PATIENT HAS PAIN IN RIGHT SHOULDER Triage Nursing Assessment: PATIENT BEEN HAVING SYMPTOMS ON GOING SINCE LAST SUNDAY. PATIENT ALERT AND ORIENTED, PATIENT NONVERBAL, HX OF STROKE. NO SOB, LUNGS BILATERAL WHEEZING THROUGHOUT. HEART SOUNDS WNL. BOWEL SOUNDS PRESENT Physician History: 65 years old with multiple medical problems hypertension, stroke with right- sided residual weakness and upper extremity and speech impairment, on Xarelto, multiple back/neck surgeries presented in the ER with chief complaint of right shoulder pain. This has been going on for quite some time and patient has been seen in the ER multiple times and recent x-rays negative. Pain is moderate to severe sharp with minimal movements and even at resting, radiates down to forearm. Denies any chest pain. No difficulty breathing. Patient received pain shot and wants some relief again today because it is getting unbearable and has appointment with pain management for early next week. Occurred: other Quality: sharpness Severity of Pain-Max: severe Severity of Pain-Current: severe Extremities Pain Location: shoulder: right Modifying Factors: Improves With: pain medication. Worsens With: movement Allergies/Adverse Reactions: No Known Drug Allergies Allergy (Verified 04/21/21 11:13) Home Medications: Atorvastatin Calcium 20 mg PO DAILY 07/05/13 [History] Multivit-Min/FA/Lycopen/Lutein [Men 50 Plus Multivitamin Tab] 1 tab PO DAILY 03/30/16 [History] Aspirin [Aspirin EC] 81 mg PO .MONWEDFRI 05/31/16 [History] Metoprolol Tartrate 25 mg [Lopressor 25MG Tab] 25 mg PO DAILY 05/31/16 [History] Rivaroxaban [Xarelto] 20 mg PO DAILY 05/31/16 [History] Duloxetine HCl 30 mg [Cymbalta 30 MG Capsule] 1 cap PO DAILY 04/21/21 [History] Hydrocodone/Acetaminophen [Hydrocodone-Acetamin 10-325 mg] 1 tab PO QID PRN 04/21/21 [History] Hx Tetanus, Diphtheria Vaccination/Date Given: Yes Hx Influenza Vaccination/Date Given: No Hx Pneumococcal Vaccination/Date Given: No Travel Risk - International Travel Have you traveled outside of the country in past 3 weeks: No - Coronavirus Screening Are you exhibiting any of the following symptoms?: No Close contact with a COVID-19 positive Pt in past 14-21 Days: No - Vaccine Status Have you recieved a Covid-19 vaccination: Yes 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 - Vaccination Dates Date of 2cond Vaccination (if applicable): January 2021 - Review of Systems Constitutional: No Symptoms Eyes: No Symptoms Ears, Nose, & Throat: No Symptoms Respiratory: No Symptoms Cardiac: No Symptoms Genitourinary Symptoms: No Symptoms Musculoskeletal: Arthralgias, Back Pain, Neck Pain, Deformity Skin: No Symptoms Neurological: Speech Changes Endocrine: No Symptoms Hematologic/Lymphatic: No Symptoms - Past Medical History Pertinent Past Medical History: Yes Neurological History: Stroke ENT History: No Pertinent History Cardiac History: Arrhythmia, High Cholesterol Respiratory History: COPD Endocrine Medical History: No Pertinent History Musculoskeletal History: Degenerative Disk Disease GI Medical History: GERD, Other History: No Pertinent History Psycho-Social History: Depression Male Reproductive Disorders: No Pertinent History Other Medical History: LONG HISTORY OF BACK PAIN AND MUSCLE SPASMS SPECIFICALLY IN LOWER BACK - Past Surgical History Past Surgical History: Yes Neuro Surgical History: No Pertinent History Cardiac: No Pertinent History Respiratory: No Pertinent History Gastrointestinal: Appendectomy Genitourinary: No Pertinent History Musculoskeletal: Orthopedic Surgery Male Surgical History: No Pertinent History Other Surgical History: 4 BACK SURGERIES - Social History Smoking Status: Current every day smoker How long have you smoked: 45 years Exposure to second hand smoke: No Drug Use: none Patient Lives Alone: No Significant Family History: hypertension, stroke - Nursing Vital Signs Nursing Vital Signs: Initial Vital Signs Temperature 97.9 F 04/23/21 14:09 Pulse Rate 74 04/23/21 14:09 Respiratory Rate 20 04/23/21 14:09 Blood Pressure 128/83 04/23/21 14:09 O2 Sat by Pulse Oximetry 95 04/23/21 14:09 Pain Scale Pain Intensity 8 - Physical Exam General Appearance: no apparent distress, alert Eyes, Ears, Nose, Throat Exam: normal ENT inspection Neck Exam: normal inspection, supple, full range of motion Cardiovascular/Respiratory Exam: normal breath sounds, regular rate/rhythm Back Exam: normal inspection, No CVA tenderness Shoulder Exam: limited ROM (Right shoulder without Hill-Sachs deformity, reproducible pain with palpation and movements. ) Mental Status Exam: alert, oriented x 3, cooperative Skin Exam: normal color SpO2 Interpretation: normal SpO2: 95 O2 Delivery: Room Air Ordered Tests: Medication Summary Discontinued Medications Generic Name Dose Route Start Last Admin Trade Name Paulie PRN Reason Stop Dose Admin Hydromorphone HCl 1 mg 04/23/21 14:36 04/23/21 14:42 Hydromorphone 1 Mg/1ml Inj 1 Mg/Ml Syringe IM 04/23/21 14:37 1 mg STAT ONE Administration Hydromorphone HCl Confirm 04/23/21 14:41 Hydromorphone 1 Mg/1ml Inj 1 Mg/Ml Syringe Administered 04/23/21 14:42 Dose 1 mg .ROUTE .STK-MED ONE - Progress Progress: improved Progress Note: 04/23/21 14:54 He is given IM shot of Dilaudid and feeling better on reevaluation. No chest pain. Pain is similar to previous episodes, do not think needs any other work- up but recommended/encouraged keeping appointment with pain management. Discussed signs symptoms of worsening needing return to ER which he seems understanding. Stable for discharge. Counseled pt/family regarding: diagnosis, need for follow-up - Departure Departure Disposition: Home Clinical Impression: Chronic right shoulder pain Condition: Stable Critical Care Time: No Referrals: ADALBERTO MIMS [Primary Care Provider] - Follow Up with PCP/3 days SAVITA LAND MD [CONSULTING PHYSICIAN] - Follow up/PCP as directed (In 2 days for reevaluation) Additional Instructions: Take pain medications which you have at home as recommended. Keep appointment with pain management. Follow-up with primary care. Return to ER for worsening pain or if having chest pain, difficulty breathing etc.
[2021-04-23 15:09] VITALS: BP 124/80; PULSE 80
[2021-04-23 15:18] VITALS: O2SAT 95
== END 2021-04-23 15:13 | disposition home or self-care (01) ==
LOC: ED 13:09
DX: M25.511 Pain in right shoulder (principal); G89.29 Other chronic pain; I10 Essential (primary) hypertension; I63.9 Cerebral infarction, unspecified; G81.91 Hemiplegia, unspecified affecting right dominant side; R47.9 Unspecified speech disturbances; Z72.0 Tobacco use; Z79.01 Long term (current) use of anticoagulants; Z79.891 Long term (current) use of opiate analgesic; E78.5 Hyperlipidemia, unspecified
CPT/HCPCS: 96372; 99283; J1170

== ENCOUNTER 2021-04-26 17:17 | Emergency (ER) | payer MEDICARE ==
[2021-04-26] MEDS ORDERED: Hydromorphone 1 mg/ml Injection IM ONE (17:29)
[2021-04-26 17:30] VITALS: BP 133/87; PULSE 100; O2SAT 94
[2021-04-26] MEDS ORDERED: Hydromorphone 1 mg/ml Injection ONE (17:32)
--- NOTE | 2021-04-26 17:34 | ERPHSYRPT ---
- History of Present Illness Time Seen by Provider: 04/26/21 17:30 Source: patient, family, old records Exam Limitations: clinical condition Patient Subjective Stated Complaint: Right shoulder pain Triage Nursing Assessment: Patient brought back to ED via w/c and requested to stay in personal w/c. Patient A+O X3. Patient's skin pink, warm and dry. Patient complains of right shoulder pain 02/06. Patient has been dealing with this issue for several weeks and has been seen in ED multiple times for IM pain medication. Patient has appointment with Dr. Carrero tomorrow. 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 He is on Xarelto he has had numerous back and neck surgeries he presents with a complaint of right shoulder pain is been going on for several weeks he has an appointment tomorrow with pain clinic. He has had x-rays and other work-ups. Occurred: other (Pain is been present in the right shoulder for several weeks) Method of Injury: unknown Quality: intermittent, throbbing Severity of Pain-Max: severe Severity of Pain-Current: severe Extremities Pain Location: shoulder: right (Paralysis and decreased range of motion) Modifying Factors: Improves With: nothing Associated Symptoms: none Allergies/Adverse Reactions: No Known Drug Allergies Allergy (Verified 04/26/21 17:23) Home Medications: Atorvastatin Calcium 20 mg PO DAILY 07/05/13 [History] Multivit-Min/FA/Lycopen/Lutein [Men 50 Plus Multivitamin Tab] 1 tab PO DAILY 03/30/16 [History] Aspirin [Aspirin EC] 81 mg PO .MONWEDFRI 05/31/16 [History] Metoprolol Tartrate 25 mg [Lopressor 25MG Tab] 25 mg PO DAILY 05/31/16 [History] Rivaroxaban [Xarelto] 20 mg PO DAILY 05/31/16 [History] Duloxetine HCl 30 mg [Cymbalta 30 MG Capsule] 1 cap PO DAILY 04/21/21 [History] Hydrocodone/Acetaminophen [Hydrocodone-Acetamin 10-325 mg] 1 tab PO QID PRN 04/21/21 [History] Hx Tetanus, Diphtheria Vaccination/Date Given: Yes Hx Influenza Vaccination/Date Given: No Hx Pneumococcal Vaccination/Date Given: No Immunizations Up to Date: Yes Travel Risk - International Travel Have you traveled outside of the country in past 3 weeks: No - Coronavirus Screening Are you exhibiting any of the following symptoms?: No Close contact with a COVID-19 positive Pt in past 14-21 Days: No - Vaccine Status Have you recieved a Covid-19 vaccination: Yes 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[employer] - Vaccination Dates Date of 2cond Vaccination (if applicable): January 2021 - Review of Systems Constitutional: No Fever, No Chills Eyes: No Symptoms Ears, Nose, & Throat: No Symptoms Respiratory: No Cough, No Dyspnea Cardiac: No Chest Pain, No Edema, No Syncope Abdominal/Gastrointestinal: No Abdominal Pain, No Nausea, No Vomiting, No Diarrhea Genitourinary Symptoms: No Dysuria Musculoskeletal: No Back Pain, No Neck Pain Skin: No Rash Neurological: Paralysis (Right hemiparesis), No Dizziness, No Focal Weakness, No Sensory Changes Psychological: No Symptoms Endocrine: No Symptoms All Other Systems: Reviewed and Negative - Past Medical History Pertinent Past Medical History: Yes Neurological History: Stroke ENT History: No Pertinent History Cardiac History: Arrhythmia, High Cholesterol Respiratory History: COPD Endocrine Medical History: No Pertinent History Musculoskeletal History: Degenerative Disk Disease GI Medical History: GERD, Other History: No Pertinent History Psycho-Social History: Depression Male Reproductive Disorders: No Pertinent History Other Medical History: LONG HISTORY OF BACK PAIN AND MUSCLE SPASMS SPECIFICALLY IN LOWER BACK - Past Surgical History Past Surgical History: Yes Neuro Surgical History: No Pertinent History Cardiac: No Pertinent History Respiratory: No Pertinent History Gastrointestinal: Appendectomy Genitourinary: No Pertinent History Musculoskeletal: Orthopedic Surgery Male Surgical History: No Pertinent History Other Surgical History: 4 BACK SURGERIES - Social History Smoking Status: Current every day smoker How long have you smoked: 45 years Exposure to second hand smoke: No Drug Use: none Patient Lives Alone: No Significant Family History: hypertension, stroke - Nursing Vital Signs Nursing Vital Signs: Initial Vital Signs Temperature 98.5 F 04/26/21 17:23 Pulse Rate 100 H 04/26/21 17:23 Respiratory Rate 18 04/26/21 17:23 Blood Pressure 133/87 04/26/21 17:23 O2 Sat by Pulse Oximetry 94 L 04/26/21 17:23 Pain Scale Pain Intensity 10 - Physical Exam General Appearance: moderate distress, alert Eyes, Ears, Nose, Throat Exam: moist mucous membranes Neck Exam: non-tender, supple Cardiovascular/Respiratory Exam: chest non-tender, normal breath sounds, regular rate/rhythm, no respiratory distress Abdominal Exam: non-tender, No guarding Back Exam: normal inspection, No vertebral tenderness Shoulder Exam: limited ROM (Right upper extremity), soft tissue tenderness Elbow/Forearm Exam: normal inspection, non-tender Wrist Exam: normal inspection, non-tender Hand Exam: normal inspection, non-tender Neuro/Tendon Exam: normal sensation, motor deficit (Right hemiparesis) Mental Status Exam: alert, cooperative Skin Exam: normal color, warm, dry SpO2 Interpretation: normal SpO2: 94 O2 Delivery: Room Air - Course Nursing assessment & vital signs reviewed: Yes Ordered Tests: Medication Summary Generic Name Dose Route Start Last Admin Trade Name Freq PRN Reason Stop Dose Admin Hydromorphone HCl 1 mg 04/26/21 17:29 Hydromorphone 1 Mg/1ml Inj 1 Mg/Ml Syringe IM 04/26/21 17:30 STAT ONE - Progress Progress: improved - Departure Departure Disposition: Home Clinical Impression: Shoulder pain, right Condition: Stable Critical Care Time: No Referrals: ADALBERTO MIMS [Primary Care Provider] - Follow up/PCP as directed Instructions: Shoulder Sprain (DC)
== END 2021-04-26 17:39 | disposition home or self-care (01) ==
LOC: ED 17:17
DX: M25.511 Pain in right shoulder (principal); I69.351 Hemiplegia and hemiparesis following cerebral infarction affecting right dominant side; I10 Essential (primary) hypertension; Z72.0 Tobacco use; E78.5 Hyperlipidemia, unspecified; Z79.01 Long term (current) use of anticoagulants; Z79.891 Long term (current) use of opiate analgesic; Z79.899 Other long term (current) drug therapy
CPT/HCPCS: 96372; 99283; J1170

== ENCOUNTER 2021-04-28 14:26 | Emergency (ER) | payer MEDICARE ==
[2021-04-28] MEDS ORDERED: MORPHINE SULFATE 4 MG INJ IM ONE (15:50)
--- NOTE | 2021-04-28 15:50 | ERPHSYRPT ---
- History of Present Illness Time Seen by Provider: 04/28/21 14:45 Source: patient Exam Limitations: no limitations Patient Subjective Stated Complaint: pt sister reports pt has R shoulder pain that is chronic in nature, reports many ED visits recently with a visit to pain management who scheduled pt for injection soon. pt refuses to get out of wheelchair, pt refuses to undress, pt refuses to remove his coat for a blood pressure, pt sister says pt does not usually get in the bed or remove his clothing to be evaluated. Triage Nursing Assessment: pt is aox3, pt will not look up or make eye contact with this nurse, pt sister is historian, pt afebrile, resps easy and non labored, cap refill < 3 seconds, radial pulses strong and equal, pt skin pink warm dry. Physician History: Patient is a chronic pain clinic patient who has chronic back and leg problems which have been treated with a wide variety of narcotics and pain medication without very much success who now has a acute right shoulder pain which has not been helped by any of his usual pain meds. He was seen 2 days ago was given a shot of Dilaudid and shortness he was going to the pain center which he did yesterday in which they did not change his pain medicine even though they were aware that he was coming to the ER. Upon his arrival today I did call the pain center once again they did not have anything helpful to add. Method of Injury: unknown Quality: throbbing Severity of Pain-Max: moderate Severity of Pain-Current: moderate Extremities Pain Location: shoulder: right (Chronic pain) Modifying Factors: Improves With: movement Associated Symptoms: none Allergies/Adverse Reactions: No Known Drug Allergies Allergy (Verified 04/28/21 14:47) Home Medications: Atorvastatin Calcium 20 mg PO DAILY 07/05/13 [History] Multivit-Min/FA/Lycopen/Lutein [Men 50 Plus Multivitamin Tab] 1 tab PO DAILY 03/30/16 [History] Aspirin [Aspirin EC] 81 mg PO .MONWEDFRI 05/31/16 [History] Metoprolol Tartrate 25 mg [Lopressor 25MG Tab] 25 mg PO DAILY 05/31/16 [History] Rivaroxaban [Xarelto] 20 mg PO DAILY 05/31/16 [History] Duloxetine HCl 30 mg [Cymbalta 30 MG Capsule] 1 cap PO DAILY 04/21/21 [History] Hydrocodone/Acetaminophen [Hydrocodone-Acetamin 10-325 mg] 1 tab PO QID PRN 04/21/21 [History] Hx Tetanus, Diphtheria Vaccination/Date Given: Yes Hx Influenza Vaccination/Date Given: Yes Hx Pneumococcal Vaccination/Date Given: Yes Immunizations Up to Date: Yes Travel Risk - International Travel Have you traveled outside of the country in past 3 weeks: No - Coronavirus Screening Are you exhibiting any of the following symptoms?: No - Vaccine Status Have you recieved a Covid-19 vaccination: Yes 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[employer] - Vaccination Dates Date of 2cond Vaccination (if applicable): 02/04/2021 - Review of Systems Constitutional: No Fever, No Chills Eyes: No Symptoms Ears, Nose, & Throat: No Symptoms Respiratory: No Cough, No Dyspnea Cardiac: No Chest Pain, No Edema, No Syncope Abdominal/Gastrointestinal: No Abdominal Pain, No Nausea, No Vomiting, No Diarrhea Genitourinary Symptoms: No Dysuria Musculoskeletal: Joint Pain, No Back Pain, No Neck Pain Skin: No Rash Neurological: No Dizziness, No Focal Weakness, No Sensory Changes Psychological: No Symptoms Endocrine: No Symptoms All Other Systems: Reviewed and Negative - Past Medical History Pertinent Past Medical History: Yes Neurological History: Stroke ENT History: No Pertinent History Cardiac History: Arrhythmia, High Cholesterol Respiratory History: COPD Endocrine Medical History: No Pertinent History Musculoskeletal History: Degenerative Disk Disease GI Medical History: GERD, Other History: No Pertinent History Psycho-Social History: Depression Male Reproductive Disorders: No Pertinent History Other Medical History: LONG HISTORY OF BACK PAIN AND MUSCLE SPASMS SPECIFICALLY IN LOWER BACK - Past Surgical History Past Surgical History: Yes Neuro Surgical History: No Pertinent History Cardiac: No Pertinent History Respiratory: No Pertinent History Gastrointestinal: Appendectomy Genitourinary: No Pertinent History Musculoskeletal: Orthopedic Surgery Male Surgical History: No Pertinent History Other Surgical History: 4 BACK SURGERIES - Social History Smoking Status: Unknown if ever smoked How long have you smoked: 45 years Exposure to second hand smoke: No Drug Use: none Patient Lives Alone: No Significant Family History: hypertension, stroke - Nursing Vital Signs Nursing Vital Signs: Initial Vital Signs Temperature 98 F 04/28/21 14:35 Pulse Rate 87 04/28/21 14:35 Respiratory Rate 20 04/28/21 14:35 Blood Pressure 116/91 04/28/21 14:35 O2 Sat by Pulse Oximetry 97 04/28/21 14:35 Pain Scale Pain Intensity 10 - Physical Exam General Appearance: mild distress Eyes, Ears, Nose, Throat Exam: moist mucous membranes Neck Exam: non-tender, supple Cardiovascular/Respiratory Exam: chest non-tender, no respiratory distress Shoulder Exam: deformity, limited ROM, swelling Elbow/Forearm Exam: normal inspection, non-tender Wrist Exam: normal inspection, non-tender Hand Exam: normal inspection, non-tender Neuro/Tendon Exam: motor deficit, sensory deficit SpO2: 97 - Course Nursing assessment & vital signs reviewed: Yes - Progress Progress: unchanged - Departure Departure Disposition: Home Clinical Impression: Chronic shoulder pain Condition: Stable Critical Care Time: No Referrals: ADALBERTO MIMS [Primary Care Provider] - Follow up/PCP as directed Instructions: Shoulder Tendinopathy (DC)
[2021-04-28 15:54] VITALS: BP 112/78; PULSE 82; O2SAT 99
[2021-04-28] MEDS ORDERED: MORPHINE SULFATE 4 MG INJ ONE (15:55)
== END 2021-04-28 16:06 | disposition home or self-care (01) ==
LOC: ED 14:26
DX: M25.511 Pain in right shoulder (principal); G89.29 Other chronic pain; E78.5 Hyperlipidemia, unspecified; Z79.01 Long term (current) use of anticoagulants; Z79.891 Long term (current) use of opiate analgesic
CPT/HCPCS: 96372; 99283; J2270

== ENCOUNTER 2021-05-04 08:42 | Day surgery (SDC) | payer MEDICARE ==
[2021-05-04] MEDS ORDERED: Depo-Medrol 40 MG/ML IM ONE (08:43)
[2021-05-04] MEDS ORDERED: BUPIVACAINE 0.5% VIAL IJ ONE (08:43)
[2021-05-04] MEDS ORDERED: DIPRIVAN 200 MG/20 ML IV ONE (10:23)
[2021-05-04] MEDS ORDERED: MORPHINE SULFATE 2 MG INJ ONE ×2 (10:36→10:43)
[2021-05-04] MEDS ORDERED: Lactated Ringers 1,000 ML IV ONE (10:37)
--- NOTE | 2021-05-04 13:03 | XRAY ---
Indication: Right shoulder injection. Intraoperative fluoroscopy provided for 8 seconds. Single digital spot image submitted for interpretation demonstrates contrast in the right glenohumeral joint. Correlate with intraoperative findings/report.
== END 2021-05-04 10:50 | disposition home or self-care (01) ==
LOC: SDC-PAIN 08:42
PROVIDERS: ATTEND Psychiatry & Neurology Pain Medicine
DX: M19.011 Primary osteoarthritis, right shoulder (principal); Z79.899 Other long term (current) drug therapy
CPT/HCPCS: 20610; 73030; 77002; J1030; J2270; J2704; Q9966

== ENCOUNTER 2025-02-18 15:41 | Emergency (ER) | payer MEDICARE ==
[2025-02-18 16:00] VITALS: TEMP 97.9
[2025-02-18 16:02] VITALS: O2SAT 97
--- NOTE | 2025-02-18 16:13 | ERPHSYRPT ---
- History of Present Illness Time Seen by Provider: 02/18/25 16:10 Source: patient, family Patient Subjective Stated Complaint: Unable to bear weght on the left leg after a fall yesterday. Triage Nursing Assessment: Patient arrives by ambulance with no family. Reported that patient fell yesterday and now has not been able to bear weight on the left leg. Patient is able to lift and bend the leg and points to the back of the knee and upper calf when asked about the pain. There is no swelling or bruising noted to the leg. Push pulls are equal on both lower extremeties. He denies any other pain. Physician History: Patient has history of stroke and right-sided deficits comes into the emergency room with the because of a fall that occurred on Sunday night patient fell hit his head there was no LOC and he was able to get up and walk but the next day the patient had trouble walking on his left leg complaining of pain around the left knee patient has physical therapy that comes and sees him and they cannot figure out why this is happening. She was brought to the ER for further evaluation and management. Timing/Duration: day(s) Associated Symptoms: denies symptoms Allergies/Adverse Reactions: Penicillins Allergy (Unknown, Verified 02/18/25 16:14) Home Medications: Atorvastatin Calcium 40 mg PO DAILY 07/05/13 [History] Aspirin [Aspirin EC] 81 mg PO .MONWEDFRI 05/31/16 [History] Apixaban [Eliquis] 5 mg PO BID 02/18/25 [History] Cholecalciferol (Vitamin D3) [Vitamin D3] 125 mcg PO DAILY 02/18/25 [History] Duloxetine HCl 60 mg PO DAILY 02/18/25 [History] Levocetirizine Dihydrochloride 5 mg PO DAILY 02/18/25 [History] Multivitamin 1 tablet PO DAILY 02/18/25 [History] Omeprazole 20 mg PO DAILY 02/18/25 [History] Pregabalin 150 mg PO BID 02/18/25 [History] Hx Tetanus, Diphtheria Vaccination/Date Given: Yes Hx Influenza Vaccination/Date Given: Yes Hx Pneumococcal Vaccination/Date Given: Yes Travel Risk - International Travel Have you traveled outside of the country in past 3 weeks: No - Emerging Infectious Disease Are you exhibiting symptoms associated with any current EIDs: No - Review of Systems Constitutional: No Symptoms Respiratory: No Cough, No Dyspnea Cardiac: No Chest Pain, No Edema, No Syncope Abdominal/Gastrointestinal: No Abdominal Pain, No Nausea, No Vomiting, No Diarrhea Musculoskeletal: Fall - Past Medical History Pertinent Past Medical History: Yes Neurological History: Stroke ENT History: No Pertinent History Cardiac History: Arrhythmia, High Cholesterol Respiratory History: COPD Endocrine Medical History: No Pertinent History Musculoskeletal History: Degenerative Disk Disease GI Medical History: GERD, Other History: No Pertinent History Psycho-Social History: Depression Male Reproductive Disorders: No Pertinent History Other Medical History: LONG HISTORY OF BACK PAIN AND MUSCLE SPASMS SPECIFICALLY IN LOWER BACK - Past Surgical History Past Surgical History: Yes Neuro Surgical History: No Pertinent History Cardiac: No Pertinent History Respiratory: No Pertinent History Gastrointestinal: Appendectomy Genitourinary: No Pertinent History Musculoskeletal: Orthopedic Surgery Male Surgical History: No Pertinent History Other Surgical History: 4 BACK SURGERIES Significant Family History: hypertension, stroke - Social History Smoking Status: Unknown if ever smoked How long have you smoked: 45 years Drug Use: none - Social Determinants of Health Will the patient participate in the screening: Unable to obtain - Nursing Vital Signs Nursing Vital Signs: Initial Vital Signs Temperature 97.9 F 02/18/25 15:42 Pulse Rate 100 H 02/18/25 15:42 Respiratory Rate 20 02/18/25 15:42 Blood Pressure 120/76 02/18/25 15:42 O2 Sat by Pulse Oximetry 100 02/18/25 15:42 Pain Scale Pain Intensity 4 - Physical Exam General Appearance: no apparent distress, alert Eye Exam: PERRL/EOMI, eyes nml inspection Ears, Nose, Throat Exam: normal ENT inspection, TMs normal, pharynx normal, moist mucous membranes Neck Exam: normal inspection, non-tender, supple, full range of motion Respiratory Exam: normal breath sounds, lungs clear, No respiratory distress Cardiovascular Exam: regular rate/rhythm, normal heart sounds, normal peripheral pulses Gastrointestinal/Abdomen Exam: soft, normal bowel sounds, No tenderness, No mass Extremity Exam: normal inspection, normal range of motion Neurologic Exam: alert Skin Exam: normal color SpO2: 97 - Radiology Exams Left Knee X-ray Interpretation: Interpreted by me, Reviewed by me, Negative, No Fracture - CT Exams Head CT Interpretation: Negative, Tele-radiologist Report Ordered Tests: Active Orders 24 hr Category Date Time Status HEAD WITHOUT CONTRAST [CT] Stat Exams 02/18/25 16:09 Completed KNEE (3 VIEWS) Stat Exams 02/18/25 16:09 Completed - Progress Progress Note: 02/18/25 16:12 Patient is on Eliquis and had a fall where he hit his head. Therefore for that reason the patient will have a head CT done patient's C-spine cleared using the Nexus criteria Patient will also have a x-ray done of the left knee I do not see any injuries and the patient has full mobility but the family is concerned because he is able to not walk properly on it based on my physical exam I believe the patient might of sprained his knee which is causing the symptoms to happen. - Departure Departure Disposition: Home Clinical Impression: Left knee sprain Qualifiers: Encounter type: initial encounter Involved ligament of knee: unspecified ligament Qualified Code(s): S83.92XA - Sprain of unspecified site of left knee, initial encounter Condition: Stable Critical Care Time: No Referrals: ADALBERTO MIMS [Primary Care Provider, [facility]] - Follow up/PCP as directed
--- NOTE | 2025-02-18 17:01 | XRAY ---
Indication: Fall. Comparison: None 3 view left knee demonstrates osteopenia, minimal medial joint space narrowing, posterior fabella, and mild scattered vascular calcifications. No acute bony, articular, or soft tissue abnormalities.
--- NOTE | 2025-02-18 17:07 | XRAY ---
Indication: Fall. Blood thinners. Multiple contiguous axial images obtained through the head without contrast. Comparison: January 16, 2017 Age-appropriate global atrophy with minimal degenerative microischemia. Progressive maturation old left MCA infarct. No acute intracranial hemorrhage, hydrocephalus, or mass effect. 4th ventricle is midline. Bony calvarium intact. Mild mucosal thickening both ethmoid sinuses. Remaining paranasal sinuses and mastoid air cells are clear. 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 Incidental minimal paranasal sinus disease.
[2025-02-18 18:02] VITALS: BP 127/66; PULSE 80; RESP 15
== END 2025-02-18 18:30 | disposition home or self-care (01) ==
LOC: ED 15:41
DX: S83.92XA Sprain of unspecified site of left knee, initial encounter (principal); W19.XXXA Unspecified fall, initial encounter; Z79.01 Long term (current) use of anticoagulants; Z79.899 Other long term (current) drug therapy